=== PATIENT | male | born 1975 | race Caucasian/White ===

== ENCOUNTER → 2016-08-07 | Outpatient (REF) | payer OTHER | LOC: M LAB REF 17:10 | PROVIDERS: ATTEND Surgery | DX: L40.9 Psoriasis, unspecified (principal); L72.12 Trichodermal cyst ==

== ENCOUNTER → 2018-07-06 | Outpatient (CLI) | payer OTHER ==
--- NOTE | 2018-07-09 10:44 | SLEEPCENT ---
DATE OF PROCEDURE: 07/06/2018 ORDERED BY: Aurora Lorenzo. Nocturnal polysomnography was performed for re-titration of pressure therapy in this patient with obstructive sleep apnea syndrome. For testing, a [employer] Eson nasal 2 medium sized mask was used, 11 cm of water pressure were applied to the circuit and the lights were extinguished. 6 hours and 54 minutes of data were reviewed. There are 384 minutes of sleep identified. Sleep latency was short at 2 minutes. REM latency was short at 44 minutes. Sleep architecture was good with 5 REM cycles. Overall sleep efficiency 95.1%. The patient's electrocardiogram showed a sinus rhythm with an average heart rate of 65 beats per minute. EEG showed normal waveforms for awake and sleep stages. Respiratory events were best palliated with CPAP at a pressure of +13. There was some activity noted in the limb leads more so early in the study. Limb movement arousal index was 5.3. IMPRESSION: Obstructive sleep apnea syndrome (G47.33). RECOMMENDATIONS: Nightly use of pressure therapy 13 cm of water.
== END ==
LOC: M SLEEP 20:00
PROVIDERS: ATTEND Nurse Practitioner Family
DX: G47.33 Obstructive sleep apnea (adult) (pediatric) (principal)

== ENCOUNTER 2018-12-15 22:16 | Emergency (ER) | payer OTHER ==
[~2018-12-15] VITALS: Ht 170.2 cm; Wt 104.5 kg
[2018-12-15 22:16] VITALS: BP 143/82
[2018-12-15] MEDS ORDERED: FOCA30CA (22:20)
[2018-12-15] MEDS ORDERED: LORA-674 (22:20)
[2018-12-15] MEDS ORDERED: BUPR150T3 (22:20)
[2018-12-16] MEDS ORDERED: DOXYCYCLINE HYCLATE 100 MG TAB PO ONE (03:00)
[2018-12-16] MEDS ORDERED: AUGMENTIN 875 MG TAB PO ONE (03:00)
[2018-12-16] MEDS ORDERED: AUGM500T34 PO (03:04)
== END 2018-12-16 03:45 | disposition home or self-care (01) ==
LOC: M ED 22:16
DX: S80.862A Insect bite (nonvenomous), left lower leg, initial encounter (principal); W57.XXXA Bitten or stung by nonvenomous insect and other nonvenomous arthropods, initial encounter; Y92.89 Other specified places as the place of occurrence of the external cause; F31.9 Bipolar disorder, unspecified; Z79.899 Other long term (current) drug therapy; Z88.8 Allergy status to other drugs, medicaments and biological substances

== ENCOUNTER 2019-03-18 09:55 | Day surgery (SDC) | payer OTHER ==
[~2019-03-18] VITALS: Ht 170.2 cm; Wt 118.3 kg
[~2019-03-18 09:55] MED LIST: AUGM500T34 PO; BUPR150T3; COMBAER6 INH; FOCA30CA; LORA-674; NS 1,000 ML IV ONE
[2019-03-18] MEDS ORDERED: fentaNYL 100 MCG/2 ML INJECTION (J3010) As Ordered ONE (10:23)
[2019-03-18] MEDS ORDERED: LIDOCAINE 2% INJ 100 MG/5 ML SDV (FOR ANES.) As Ordered ONE (10:24)
[2019-03-18] MEDS ORDERED: PROPOFOL 500 MG/50 ML VIAL As Ordered ONE (10:24)
--- NOTE | 2019-03-18 11:52 | ROOR ---
Patient Name: French Rosales Procedure Date: 03/18/2019 11:22 AM Date of : 1975 Age: 43 Room: [facility] Gender: Male Note Status: Finalized Procedure: Upper GI endoscopy Indications: Suspected esophageal reflux Providers: DO Matheus Mccullough MD: Dimple Rowe MD Requesting Provider: Medicines: Propofol per Anesthesia Complications: No immediate complications. Procedure: Pre-Anesthesia Assessment: - Prior to the procedure, a History and Physical was performed, and patient medications and allergies were reviewed. The patient is competent. The risks and benefits of the procedure and the sedation options and risks were discussed with the patient. All questions were answered and informed consent was obtained. Patient identification and proposed procedure were verified by the physician, the nurse, the anesthesiologist and the logistics technician in the endoscopy suite. Mental Status Examination: alert and oriented. Airway Examination: normal oropharyngeal airway and neck mobility. Respiratory Examination: clear to auscultation. CV Examination: normal. Prophylactic Antibiotics: The patient does not require prophylactic antibiotics. Prior Anticoagulants: The patient has taken no previous anticoagulant or antiplatelet agents. ASA Grade Assessment: II - A patient with mild systemic disease. After reviewing the risks and benefits, the patient was deemed in satisfactory condition to undergo the procedure. The anesthesia plan was to use monitored anesthesia care (MAC). Immediately prior to administration of medications, the patient was re-assessed for adequacy to receive sedatives. The heart rate, respiratory rate, oxygen saturations, blood pressure, adequacy of pulmonary ventilation, and response to care were monitored throughout the procedure. The physical status of the patient was re-assessed after the procedure. The Endoscope was introduced through the mouth, and advanced to the second part of duodenum. The upper GI endoscopy was accomplished without difficulty. The patient tolerated the procedure well. Findings: The Z-line was irregular. Biopsies were taken with a cold forceps for histology. Estimated blood loss was minimal. The exam was otherwise without abnormality. Impression: - Z-line irregular. Biopsied. - The examination was otherwise normal. Recommendation: - Patient has a contact number available for emergencies. The signs and symptoms of potential delayed complications were discussed with the patient. Return to normal activities tomorrow. Written discharge instructions were provided to the patient. - Return to my office as previously scheduled. Domenico Wills DO 03/18/2019 11:52:38 AM Electronically signed by Domenico Wills DO Number of Addenda: 0 Note Initiated On: 03/18/2019 11:22 AM Estimated Blood Loss: Estimated blood loss was minimal.
--- NOTE | 2019-03-18 11:57 | ROOR ---
Patient Name: French Rosales Procedure Date: 03/18/2019 11:22 AM Date of : 1975 Age: 43 Room: [facility] Gender: Male Note Status: Finalized Procedure: Colonoscopy Indications: Hematochezia Providers: DO Matheus Mccullough MD: Dimple Rowe MD Requesting Provider: Medicines: Propofol per Anesthesia Complications: No immediate complications. Procedure: Pre-Anesthesia Assessment: - Prior to the procedure, a History and Physical was performed, and patient medications and allergies were reviewed. The patient is competent. The risks and benefits of the procedure and the sedation options and risks were discussed with the patient. All questions were answered and informed consent was obtained. Patient identification and proposed procedure were verified by the physician, the nurse, the anesthesiologist and the gis mapping technician in the endoscopy suite. Mental Status Examination: alert and oriented. Airway Examination: normal oropharyngeal airway and neck mobility. Respiratory Examination: clear to auscultation. CV Examination: normal. Prophylactic Antibiotics: The patient does not require prophylactic antibiotics. Prior Anticoagulants: The patient has taken no previous anticoagulant or antiplatelet agents. ASA Grade Assessment: II - A patient with mild systemic disease. After reviewing the risks and benefits, the patient was deemed in satisfactory condition to undergo the procedure. The anesthesia plan was to use monitored anesthesia care (MAC). Immediately prior to administration of medications, the patient was re-assessed for adequacy to receive sedatives. The heart rate, respiratory rate, oxygen saturations, blood pressure, adequacy of pulmonary ventilation, and response to care were monitored throughout the procedure. The physical status of the patient was re-assessed after the procedure. The Colonoscope was introduced through the anus and advanced to the cecum, identified by appendiceal orifice and ileocecal valve. The colonoscopy was performed without difficulty. The patient tolerated the procedure well. Findings: Non-bleeding internal hemorrhoids were found during retroflexion. The hemorrhoids were Grade I (internal hemorrhoids that do not prolapse). A 10 mm polyp was found in the ascending colon. The polyp was flat. The polyp was removed with a jumbo cold forceps. Resection and retrieval were complete. Estimated blood loss was minimal. The exam was otherwise without abnormality. Impression: - Non-bleeding internal hemorrhoids. - One 10 mm polyp in the ascending colon, removed with a jumbo cold forceps. Resected and retrieved. - The examination was otherwise normal. Recommendation: - Patient has a contact number available for emergencies. The signs and symptoms of potential delayed complications were discussed with the patient. Return to normal activities tomorrow. Written discharge instructions were provided to the patient. - Repeat colonoscopy in 3 - 5 years for surveillance based on pathology results. - Return to my office as previously scheduled. Domenico Wills DO 03/18/2019 11:56:50 AM Electronically signed by Domenico Wills DO Number of Addenda: 0 Note Initiated On: 03/18/2019 11:22 AM Estimated Blood Loss: Estimated blood loss was minimal.
[2019-03-18 12:21] VITALS: BP 155/72
== END 2019-03-18 12:22 | disposition home or self-care (01) ==
LOC: M OPP 09:55
PROVIDERS: ATTEND Surgery
DX: K64.0 First degree hemorrhoids (principal); D12.2 Benign neoplasm of ascending colon; K22.8 Other specified diseases of esophagus; K92.1 Melena; G47.30 Sleep apnea, unspecified; Z79.899 Other long term (current) drug therapy; Z87.891 Personal history of nicotine dependence
CPT/HCPCS: 43239; 45380; 88305; J3010

== ENCOUNTER → 2021-04-03 | Outpatient (CLI) | payer OTHER ==
[~2021-04-03] MED LIST changes: +BUPR150T12; -BUPR150T3; -NS 1,000 ML IV ONE
--- NOTE | 2021-04-03 11:31 | REP ---
INDICATION: LOW BACK PAIN, UNSPECIFIED. COMPARISON: 03/24/2012 TECHNIQUE: Multiple views FINDINGS: There is all 4 5 disc space narrowing status quo. There is newly developed mild to moderate L5-S1 disc space narrowing. Additionally, the lateral view suggests at least unilateral L5 spondylolysis. I cannot confirm this on the oblique views, however. Vertebral body height and alignment is unchanged. The pedicles are again seen to be intact bilaterally. Mild anterior lipping is seen at every level. IMPRESSION: Chronic changes as described above. <Electronically signed by Keven Abdalla > 04/03/21 1125
== END ==
LOC: M PLAIMG 10:48
PROVIDERS: ATTEND Family Medicine
DX: M54.50 Low back pain, unspecified (principal)

== ENCOUNTER 2021-05-27 09:56 | Emergency (ER) | payer OTHER ==
[~2021-05-27] VITALS: Ht 170.2 cm; Wt 109.1 kg
[2021-05-27 09:56] VITALS: BP 142/89
[2021-05-27 11:48] LABS: RSV AMPLIFICATION NEGATIVE (NEGATIVE)
== END 2021-05-27 11:24 | disposition home or self-care (01) ==
LOC: M ED 09:56
DX: J06.9 Acute upper respiratory infection, unspecified (principal); G47.30 Sleep apnea, unspecified; Z79.899 Other long term (current) drug therapy; Z88.8 Allergy status to other drugs, medicaments and biological substances; Z87.19 Personal history of other diseases of the digestive system; Z98.890 Other specified postprocedural states

== ENCOUNTER → 2023-01-09 | Outpatient (REF) | payer OTHER | LOC: M LAB REF 20:59 | PROVIDERS: ATTEND Physician Assistant | DX: B34.9 Viral infection, unspecified (principal) ==

== ENCOUNTER 2023-07-03 09:41 | Day surgery (SDC) | payer OTHER ==
[~2023-07-03] VITALS: Ht 170.2 cm; Wt 122.9 kg
[~2023-07-03 09:41] MED LIST changes: +AMPH1CAP14 PO; +CETI-24 PO; +COQ150CH PO; +EZET10TA21 PO; +FLON1SPR NARES; +LAMO100T3 PO; +LISD50CA PO; +LORA-1041 PO; -LORA-674; +METO1TAB33 PO; +NS 1,000 ML IV ONE; +VITA100093 PO; +VYVA50CA4 PO
[2023-07-03] MEDS ORDERED: fentaNYL 100 MCG/2 ML INJECTION As Ordered ONE (10:20)
[2023-07-03] MEDS ORDERED: propofoL 200 MG/20 ML VIAL As Ordered ONE (10:20)
[2023-07-03] MEDS ORDERED: LIDOCAINE 2% 100MG/5ML SDV (FOR ANES.) As Ordered ONE (10:20)
[2023-07-03 11:09] VITALS: TEMP 97.1
[2023-07-03 11:25] VITALS: BP 136/92; O2SAT 94
== END 2023-07-03 11:34 | disposition home or self-care (01) ==
LOC: M OPP 09:41
PROVIDERS: ATTEND Surgery
DX: Z12.11 Encounter for screening for malignant neoplasm of colon (principal); Z86.010 Personal history of colon polyps; Z80.0 Family history of malignant neoplasm of digestive organs; K64.0 First degree hemorrhoids; D12.0 Benign neoplasm of cecum; K63.5 Polyp of colon; K22.89 Other specified disease of esophagus; K29.70 Gastritis, unspecified, without bleeding; K30 Functional dyspepsia; G47.30 Sleep apnea, unspecified; Z99.89 Dependence on other enabling machines and devices; Z79.51 Long term (current) use of inhaled steroids; Z79.899 Other long term (current) drug therapy
CPT/HCPCS: 43239; 45380; 45385; 88305; J3010

== ENCOUNTER 2023-11-06 14:11 | Emergency (ER) | payer OTHER ==
[~2023-11-06] VITALS: Ht 170.2 cm; Wt 127.8 kg
[~2023-11-06 14:11] MED LIST changes: -NS 1,000 ML IV ONE
[2023-11-06 17:16] VITALS: BP 158/96; TEMP 97.4; O2SAT 97
== END 2023-11-06 17:17 | disposition home or self-care (01) ==
LOC: M ED 14:11
DX: M17.11 Unilateral primary osteoarthritis, right knee (principal); X50.1XXA Overexertion from prolonged static or awkward postures, initial encounter; Y92.9 Unspecified place or not applicable; Y93.9 Activity, unspecified; Y99.9 Unspecified external cause status; F90.9 Attention-deficit hyperactivity disorder, unspecified type; Z79.899 Other long term (current) drug therapy; Z88.6 Allergy status to analgesic agent

== ENCOUNTER → 2024-06-17 | Outpatient (REF) | payer OTHER | LOC: M LAB REF 21:21 | PROVIDERS: ATTEND Physician Assistant | DX: J02.9 Acute pharyngitis, unspecified (principal) ==